=== PATIENT | male | born 1995 | race Caucasian/White ===

== ENCOUNTER 2018-03-12 20:49 | Emergency (ER) | payer MEDICAID ==
[2016-07-03 07:27] VITALS: BMI 20.5
[~2018-03-12 20:49] MED LIST: IBUPROFEN800 MG PO; NORCO 7.5/325 T1 TA1 PO; ULTRAM50 MG PO
== END 2018-03-12 22:32 | disposition home or self-care (01) ==
LOC: D.ER 20:49
DX: M25.561 Pain in right knee (principal)

== ENCOUNTER 2019-05-17 17:12 | Emergency (ER) | payer SELFPAY ==
[~2019-05-17] VITALS: Ht 172.7 cm; Wt 59.1 kg
[2019-05-17 17:19] VITALS: BP 110/64; Ht 172.7 cm; Wt 59.1 kg
[2019-05-17 18:04] LABS: BASOPHILS 0.1 % (0-2); EOSINOPHILS 1.3 % (0-7); HEMATOCRIT 46.9 % (42.0-54.0); HEMOGLOBIN 17.1 g/dL (13.5-17.5); IMMATURE GRANULOCYTES 0.1 % (0-5); LYMPHOCYTES 7.1 % (15-50); MCH 33.3 pg (26.0-34.0); MCHC 36.5 g/dL (31.0-37.0); MCV 91.2 fL (80.0-100.0); MEAN PLATELET VOLUME 10.7 fL (7.4-10.4); MONOCYTES 4.3 % (2-11); NEUTROPHILS 87.1 % (40-80); PLATELET COUNT 149 10x3/uL (130-400); RBC 5.14 10x6/uL (4.20-6.10); RDW 12.5 % (11.5-14.5); WBC 7.7 10x3/uL (4.8-10.8)
[2019-05-17 18:21] LABS: ALBUMIN 3.9 g/dL (3.4-5.0); ALKALINE PHOSPHATASE 18 U/L (46-116); ALT (SGPT) 19 U/L (10-68); AMYLASE - SERUM 50 U/L (25-115); BILIRUBIN - TOTAL 1.54 mg/dL (0.2-1.3); CALC OSMOLALITY 277 mosm/kg (275-300); CALCIUM 8.7 mg/dL (8.5-10.1); CARBON DIOXIDE 28.7 mmol/L (21.0-32.0); CHLORIDE - SERUM 102 mmol/L (98-107); GLUCOSE 90 mg/dL (74-106); LIPASE 93 U/L (73-393); POTASSIUM - SERUM 3.8 mmol/L (3.5-5.1); PROTEIN - SERUM 6.9 g/dL (6.4-8.2); SODIUM 139 mmol/L (136-145); UREA NITROGEN 13 mg/dL (7-18); eGFR NON AFRICAN AMERICAN > 90 mL/min (90-120)
[2019-05-17 20:18] LABS: APPEARANCE CLEAR (CLEAR); BILIRUBIN NEGATIVE (NEGATIVE); COLOR YELLOW (YELLOW); GLUCOSE NEGATIVE (NEGATIVE); KETONE NEGATIVE (NEGATIVE); NITRITE NEGATIVE (NEGATIVE); PROTEIN NEGATIVE (NEGATIVE); SPECIFIC GRAVITY 1.005 (1.005-1.020); UROBILINOGEN NORMAL (NORMAL)
== END 2019-05-17 21:20 | disposition left against medical advice (07) ==
LOC: D.ER 17:12
PROVIDERS: Family Medicine
DX: R11.10 Vomiting, unspecified (principal); R50.9 Fever, unspecified; R10.9 Unspecified abdominal pain

== ENCOUNTER 2020-03-16 17:13 | Emergency (ER) | payer OTHER ==
[~2020-03-16] VITALS: Ht 172.7 cm; Wt 68.2 kg
[2020-03-16 17:24] VITALS: Ht 172.7 cm; Wt 68.2 kg
[2020-03-16] MEDS ORDERED: CYCLOBENZAPRINE10 MG PO (20:14)
[2020-03-16 20:30] VITALS: BP 132/84
== END 2020-03-16 20:31 | disposition home or self-care (01) ==
LOC: D.ER 17:13
DX: S46.911A Strain of unspecified muscle, fascia and tendon at shoulder and upper arm level, right arm, initial encounter (principal); S16.1XXA Strain of muscle, fascia and tendon at neck level, initial encounter; V89.2XXA Person injured in unspecified motor-vehicle accident, traffic, initial encounter; Y93.9 Activity, unspecified; Y92.9 Unspecified place or not applicable